=== PATIENT | female | born 2005 | race Caucasian/White ===

== ENCOUNTER 2024-11-14 01:52 | Emergency (ER) | payer BC ==
[2024-11-14] MEDS ORDERED: Ondansetron PF 4 MG/2 ML Vial ONE (02:52)
== END 2024-11-14 03:41 | disposition home or self-care (01) ==
LOC: ERS 01:52
DX: F10.129 Alcohol abuse with intoxication, unspecified (principal); Y90.7 Blood alcohol level of 200-239 mg/100 ml
CPT/HCPCS: 36415; 80307; 96374; J2405